=== PATIENT | male | born 1965 | race Caucasian/White ===

== ENCOUNTER 2018-05-29 23:41 | Emergency (ER) | payer MEDICAID, OTHER ==
[~2018-05-29] VITALS: Ht 170.2 cm; Wt 119.6 kg
[2018-05-30] MEDS ORDERED: HYDROcodone/APAP 5/325 TABLET ONE (00:29)
[2018-05-30] MEDS ORDERED: PENICILLIN VK 500MG TABLET ONE (00:30)
[2018-05-30] MEDS ORDERED: IBUPROFEN 600 MG TABLET ONE (00:30)
[2018-05-30] MEDS ORDERED: PENICILLIN VK 500MG TABLET PO ONE (00:30)
[2018-05-30] MEDS ORDERED: HYDROcodone/APAP 5/325 TABLET PO ONE (00:30)
[2018-05-30] MEDS ORDERED: IBUPROFEN 600 MG TABLET PO ONE (00:30)
[2018-05-30 00:55] VITALS: BP 148/96
== END 2018-05-30 00:57 | disposition home or self-care (01) ==
LOC: ED 05-30 00:51
DX: K02.9 Dental caries, unspecified (principal)
CPT/HCPCS: 99284